=== PATIENT | female | born 1955 | race Caucasian/White ===

== ENCOUNTER 2020-02-04 08:44 | Day surgery (SDC) | payer BC ==
[~2020-02-04] VITALS: Ht 160 cm; Wt 69.3 kg
[2020-02-04] MEDS ORDERED: COZAAR100 MG PO (09:41)
[2020-02-04] MEDS ORDERED: TOBRADEX EYE O3.5 GM OP (09:43)
[2020-02-04] MEDS ORDERED: PRILOSEC10 MG PO (09:45)
[2020-02-04] MEDS ORDERED: DAILY MULTIPLE1 T19 PO (09:46)
[2020-02-04] MEDS ORDERED: OMEGA-3 1000 MG1 CAP PO (09:47)
[2020-02-04] MEDS ORDERED: NATURAL POTASS595 MG (09:48)
[2020-02-04] MEDS ORDERED: CALCIUM CARBON650 M2 (09:49)
[2020-02-04] MEDS ORDERED: VITAMIN B-6100 MG (09:50)
[2020-02-04] MEDS ORDERED: VITAMIN B12 781 TAB PO (09:51)
[2020-02-04] MEDS ORDERED: NATURAL E400 IU PO (09:52)
[2020-02-04] MEDS ORDERED: B-121000 MCG PO (09:52)
[2020-02-04] MEDS ORDERED: PROBIOTIC BLEN1 EACH PO (09:53)
[2020-02-04] MEDS ORDERED: VITAMINC1000TA (09:54)
[2020-02-04] MEDS ORDERED: VITAMIN D31000 I1 PO (09:55)
[2020-02-04] MEDS ORDERED: GLUCOSAMIN 500 (09:55)
[2020-02-04] MEDS ORDERED: ZYRTEC 10MG10 MG PO (09:57)
[2020-02-04] MEDS ORDERED: GLUCOSAMINE & C1 CA2 PO (09:59)
[2020-02-04 10:28] VITALS: BP 149/75; PULSE 68; TEMP 98.8
[2020-02-04] MEDS ORDERED: NORCO 325 MG-51 TAB PO (11:49)
[2020-02-04 12:27] VITALS: BP 115/64; PULSE 48
[2020-02-04 12:30] VITALS: BP 121/65; PULSE 44
--- NOTE | 2020-02-04 12:42 | NUR ---
PT RETURNED FROM PACU INTO BAY#7. PT ALERT TO NAME AND SLEEPY. LUNGS CLEAR AND DIINISHED. ON 02 AT 2L, O2 REMAINS IN 90% RANGE. HRR JAQUELINE AND REGULAR AND BOWEL SOUNDS PRESENT. TOLERATES ICE CHIPS. REQUESTED BLUE NOLAN MUFFIN. STATES, 'FEELING JUST ALITTLE NAUSEATED'. RATES AT 4 ON 0-10 SCALE. WILL CON TO MONITOR PROGRESS.
[2020-02-04 12:45] VITALS: BP 133/60; PULSE 52
[2020-02-04 13:00] VITALS: BP 128/62; PULSE 48
--- NOTE | 2020-02-04 13:19 | NUR ---
PT FEELING NAUSEATED. TOOK A FEW BITES OF BLUEBERRY MUFFIN AND WANTED IT REMOVED FROM THE ROOM THE SMELL AND TASTE WERE MAKING HER TOO NAUSEOUS.
--- NOTE | 2020-02-04 13:28 | NUR ---
PT WAS GIVEN ZOFRAN IV FOR NAUSEA.
--- NOTE | 2020-02-04 13:29 | NUR ---
PT STATES FEELING BETTER AND WANTS TO GO HOME. PT UP TO VOID WITHOUT DIFFICULTY. NAUSEA IS BETTER. TOLERATES WATER AND CRACKERS. WILL MONITOR.
[2020-02-04 13:32] VITALS: BP 131/56; PULSE 46; TEMP 97.4
--- NOTE | 2020-02-04 13:33 | NUR ---
PT TOLERATING CRACKERS AND WATER WITHOUT NAUSEA AND VOMITING. DENIES PAIN, ABDOMINAL BANDAIDS X4 ARE DRY AND INTACT.
--- NOTE | 2020-02-04 16:36 | NUR ---
PT WAS DISMISSED PER WC TO FAMILY VEHICLE. PT SIGNED DISCHARGE PAPERS AND VOICED UNDERSTANDING. PT LOGAN WAS DRIVING.
== END 2020-02-04 16:56 | disposition home or self-care (01) ==
LOC: SDCO 08:44
DX: K80.10 Calculus of gallbladder with chronic cholecystitis without obstruction (principal); K85.10 Biliary acute pancreatitis without necrosis or infection; K85.90 Acute pancreatitis without necrosis or infection, unspecified; I10 Essential (primary) hypertension; K21.9 Gastro-esophageal reflux disease without esophagitis; E78.5 Hyperlipidemia, unspecified; M17.0 Bilateral primary osteoarthritis of knee; M19.042 Primary osteoarthritis, left hand; M19.041 Primary osteoarthritis, right hand; F17.210 Nicotine dependence, cigarettes, uncomplicated; Z79.899 Other long term (current) drug therapy; Z79.1 Long term (current) use of non-steroidal anti-inflammatories (NSAID); Z88.0 Allergy status to penicillin; Z88.8 Allergy status to other drugs, medicaments and biological substances; Z79.82 Long term (current) use of aspirin
CPT/HCPCS: J0690; J1100; J1885; J2405; J2704; J3010; J7120